=== PATIENT | male | born 1970 | race Caucasian/White ===

== ENCOUNTER 2022-02-16 20:00 | Inpatient (IN) | payer MEDICAID ==
[~2022-02-16] VITALS: Ht 167.6 cm; Wt 98.0 kg
[2022-02-16 20:47] LABS: BASOPHILS % 0.6 % (0.0-2.0); CHLORIDE 105 mEq/L (98-107); HEMATOCRIT. 42.3 % (42.0-52.0); HEMOGLOBIN. 14.5 g/dL (14.0-18.0); LYMPHOCYTES % 15.4 % (20.0-50.0); MEAN CORPUSCULAR HEMOGLOBIN 34.8 pg (28.0-32.0); MEAN CORPUSCULAR VOLUME 101.6 fL (80.0-94.0); MEAN PLATELET VOLUME 8.6 fl (7.4-10.4); MONOCYTES % 5.3 % (2.0-8.0); NEUTROPHILS % 78.7 % (40.0-76.0); PLATELET 140 x1000/uL (130-400); RED BLOOD CELL COUNT 4.16 mill/uL (4.7-6.1); RED CELL DISTRIBUTION WIDTH 14.4 % (11.6-14.6)
[2022-02-16 20:52] LABS: ETHANOL BLOOD < 10 mg/dL
[2022-02-16] MEDS ORDERED: ONDANSETRON HCL 4MG/2ML INJ IV STA (22:35)
[2022-02-16] MEDS ORDERED: MORPHINE SULFATE 4 MG/ML CPJ (NOT FOR IM USE) IV STA (22:35)
[2022-02-17] VITALS (7 sets, daily range): BP systolic 145–159; BP diastolic 75–96
[2022-02-17] MEDS ORDERED: ASPIRIN 325MG EC TABLET PO ONE (02:15)
[2022-02-17] MEDS ORDERED: CLOPIDOGREL 75MG TABLET PO ONE (02:15)
[2022-02-17] MEDS ORDERED: CLOPIDOGREL 75MG TABLET PO SCH (03:45)
[2022-02-17] MEDS ORDERED: ASPIRIN 325MG EC TABLET PO SCH (03:45)
[2022-02-17] MEDS ORDERED: ASPI-986 PO (10:39)
[2022-02-17] MEDS ORDERED: ACETAMINOPHEN WITH CODEINE 300/30MG TABLET PO PRN (13:30)
[2022-02-17] MEDS ORDERED: IPRATROPIUM/ALBUTEROL 0.5-3(2.5)MG/3ML NEB HHN PRN (13:45)
[2022-02-17] MEDS ORDERED: ONDANSETRON HCL 4MG/2ML INJ IV PRN (13:45)
[2022-02-17] MEDS ORDERED: CLONIDINE 0.1MG TABLET PO PRN (13:45)
[2022-02-17] MEDS ORDERED: NALOXONE HCL 0.4MG/ML VIAL IV PRN (14:00)
[2022-02-17] MEDS: HYDROCODONE/APAP 7.5/325MG 1 TAB TABLET PO PRN (16:39)
[2022-02-17] MEDS: SODIUM CHLORIDE 0.9% 1,000 ML IV SCH (18:17)
[2022-02-17] MEDS: ACETAMINOPHEN 325MG TABLET PO PRN (20:08)
[2022-02-18] VITALS (12 sets, daily range): BP systolic 134–159; BP diastolic 80–101
[2022-02-18] MEDS: HYDROCODONE/APAP 7.5/325MG 1 TAB TABLET PO PRN (06:36)
[2022-02-18] MEDS: THIAMINE HCL 100MG TABLET PO SCH (09:00)
[2022-02-18] MEDS: SODIUM CHLORIDE 0.9% 1,000 ML IV SCH (09:55)
[2022-02-18] MEDS: ACETAMINOPHEN 325MG TABLET PO PRN ×2 (10:06→20:09)
[2022-02-18] MEDS: CLOPIDOGREL 75MG TABLET PO SCH (10:06)
[2022-02-18] MEDS: ASPIRIN 81MG TABLET PO SCH (10:06)
[2022-02-18] MEDS: FOLIC ACID 1MG TABLET PO SCH (13:00)
[2022-02-18] MEDS: CHLORDIAZEPOXIDE 25MG CAPSULE PO SCH (16:29)
[2022-02-19] VITALS (12 sets, daily range): BP systolic 127–152; BP diastolic 70–99
[2022-02-19] MEDS: ACETAMINOPHEN 325MG TABLET PO PRN ×3 (05:29→16:55)
[2022-02-19 05:40] LABS: BASOPHILS % 0.9 % (0.0-2.0); EOSINOPHILS % 1.6 % (0.0-5.0); HEMATOCRIT. 45.4 % (42.0-52.0); HEMOGLOBIN. 15.5 g/dL (14.0-18.0); LYMPHOCYTES % 28.7 % (20.0-50.0); MEAN CORPUSCULAR HEMOGLOBIN 34.8 pg (28.0-32.0); MONOCYTES % 11.5 % (2.0-8.0); NEUTROPHILS % 57.3 % (40.0-76.0); PLATELET 161 x1000/uL (130-400); RED BLOOD CELL COUNT 4.45 mill/uL (4.7-6.1); RED CELL DISTRIBUTION WIDTH 14.5 % (11.6-14.6)
[2022-02-19 05:45] LABS: CHLORIDE 108 mEq/L (98-107)
[2022-02-19 05:55] LABS: LDL CHOLESTEROL 127 mg/dL (5-100)
[2022-02-19 05:58] LABS: HDL CHOLESTEROL 39 mg/dL (40-59)
[2022-02-19] MEDS: CHLORDIAZEPOXIDE 25MG CAPSULE PO SCH ×2 (10:14→10:15)
[2022-02-19] MEDS: ASPIRIN 81MG TABLET PO SCH (10:14)
[2022-02-19] MEDS: THIAMINE HCL 100MG TABLET PO SCH (10:16)
[2022-02-19] MEDS: CLOPIDOGREL 75MG TABLET PO SCH (10:16)
[2022-02-19] MEDS: FOLIC ACID 1MG TABLET PO SCH (10:16)
[2022-02-19] MEDS: ATORVASTATIN CALCIUM 40MG TABLET PO SCH (22:02)
[2022-02-19] MEDS: HYDROCODONE/APAP 7.5/325MG 1 TAB TABLET PO PRN (22:02)
[2022-02-20] VITALS (12 sets, daily range): BP systolic 118–171; BP diastolic 72–92
[2022-02-20] MEDS: THIAMINE HCL 100MG TABLET PO SCH (08:10)
[2022-02-20] MEDS: CHLORDIAZEPOXIDE 25MG CAPSULE PO SCH ×2 (08:10→17:59)
[2022-02-20] MEDS: CLOPIDOGREL 75MG TABLET PO SCH (08:10)
[2022-02-20] MEDS: ASPIRIN 81MG TABLET PO SCH (08:10)
[2022-02-20] MEDS: FOLIC ACID 1MG TABLET PO SCH (08:10)
[2022-02-20] MEDS: ACETAMINOPHEN 325MG TABLET PO PRN ×2 (13:23→15:24)
[2022-02-20] MEDS: ATORVASTATIN CALCIUM 40MG TABLET PO SCH (20:12)
[2022-02-20] MEDS: HYDROCODONE/APAP 7.5/325MG 1 TAB TABLET PO PRN (20:12)
[2022-02-21] VITALS (12 sets, daily range): BP systolic 116–189; BP diastolic 72–96
[2022-02-21 05:59] LABS: BASOPHILS % 0.7 % (0.0-2.0); EOSINOPHILS % 6.9 % (0.0-5.0); HEMATOCRIT. 45.5 % (42.0-52.0); HEMOGLOBIN. 15.6 g/dL (14.0-18.0); LYMPHOCYTES % 27.5 % (20.0-50.0); MEAN CORPUSCULAR VOLUME 102.3 fL (80.0-94.0); MEAN PLATELET VOLUME 8.9 fl (7.4-10.4); MONOCYTES % 11.6 % (2.0-8.0); NEUTROPHILS % 53.3 % (40.0-76.0); PLATELET 171 x1000/uL (130-400); RED BLOOD CELL COUNT 4.45 mill/uL (4.7-6.1); RED CELL DISTRIBUTION WIDTH 14.4 % (11.6-14.6)
[2022-02-21 06:09] LABS: CHLORIDE 113 mEq/L (98-107)
[2022-02-21] MEDS: ASPIRIN 81MG TABLET PO SCH (08:37)
[2022-02-21] MEDS: CLOPIDOGREL 75MG TABLET PO SCH (08:37)
[2022-02-21] MEDS: FOLIC ACID 1MG TABLET PO SCH (08:37)
[2022-02-21] MEDS: CHLORDIAZEPOXIDE 25MG CAPSULE PO SCH ×2 (08:37→15:56)
[2022-02-21] MEDS: ACETAMINOPHEN 325MG TABLET PO PRN (08:38)
[2022-02-21] MEDS: THIAMINE HCL 100MG TABLET PO SCH (08:39)
[2022-02-21] MEDS: PANTOPRAZOLE 40MG DR TABLET PO SCH (15:43)
[2022-02-21] MEDS: BACLOFEN 10MG TABLET NG SCH (15:44)
[2022-02-21] MEDS: HYDROCODONE/APAP 7.5/325MG 1 TAB TABLET PO PRN (18:35)
[2022-02-21] MEDS: ATORVASTATIN CALCIUM 40MG TABLET PO SCH (20:34)
[2022-02-22] VITALS (12 sets, daily range): BP systolic 120–138; BP diastolic 73–86
[2022-02-22 07:17] LABS: BASOPHILS % 0.7 % (0.0-2.0); EOSINOPHILS % 9.2 % (0.0-5.0); HEMATOCRIT. 43.8 % (42.0-52.0); HEMOGLOBIN. 15.4 g/dL (14.0-18.0); LYMPHOCYTES % 28.5 % (20.0-50.0); MEAN CORPUSCULAR HEMOGLOBIN 35.4 pg (28.0-32.0); MEAN CORPUSCULAR VOLUME 100.8 fL (80.0-94.0); MEAN PLATELET VOLUME 8.9 fl (7.4-10.4); MONOCYTES % 12.1 % (2.0-8.0); NEUTROPHILS % 49.5 % (40.0-76.0); PLATELET 162 x1000/uL (130-400); RED BLOOD CELL COUNT 4.34 mill/uL (4.7-6.1); RED CELL DISTRIBUTION WIDTH 14.2 % (11.6-14.6)
[2022-02-22 07:45] LABS: CHLORIDE 110 mEq/L (98-107)
[2022-02-22] MEDS: FOLIC ACID 1MG TABLET PO SCH (08:20)
[2022-02-22] MEDS: CHLORDIAZEPOXIDE 25MG CAPSULE PO SCH (08:20)
[2022-02-22] MEDS: CLOPIDOGREL 75MG TABLET PO SCH (08:20)
[2022-02-22] MEDS: PANTOPRAZOLE 40MG DR TABLET PO SCH (08:20)
[2022-02-22] MEDS: THIAMINE HCL 100MG TABLET PO SCH (08:21)
[2022-02-22] MEDS: ASPIRIN 81MG TABLET PO SCH (08:21)
[2022-02-22] MEDS: BACLOFEN 10MG TABLET NG SCH ×2 (08:21→17:00)
[2022-02-22] MEDS: ATORVASTATIN CALCIUM 40MG TABLET PO SCH (20:51)
[2022-02-22] MEDS: ACETAMINOPHEN 325MG TABLET PO PRN (23:52)
[2022-02-23] VITALS (11 sets, daily range): BP systolic 111–171; BP diastolic 67–107
[2022-02-23] MEDS: PANTOPRAZOLE 40MG DR TABLET PO SCH (07:30)
[2022-02-23] MEDS ORDERED: NALOXONE HCL 0.4MG/ML VIAL IV PRN (08:00)
[2022-02-23] MEDS: BACLOFEN 10MG TABLET NG SCH ×2 (08:37→17:31)
[2022-02-23] MEDS: CLOPIDOGREL 75MG TABLET PO SCH (08:38)
[2022-02-23] MEDS: ASPIRIN 81MG TABLET PO SCH (08:38)
[2022-02-23] MEDS: CHLORDIAZEPOXIDE 25MG CAPSULE PO SCH (08:38)
[2022-02-23] MEDS: FOLIC ACID 1MG TABLET PO SCH (08:38)
[2022-02-23] MEDS: THIAMINE HCL 100MG TABLET PO SCH (08:39)
[2022-02-23] MEDS: SODIUM CHLORIDE 0.9% 1,000 ML IV SCH ×2 (09:25→17:45)
[2022-02-23] MEDS ORDERED: BARIUM SULFATE 176 GM SUSP.RECON ONE (12:52)
[2022-02-23] MEDS ORDERED: EZ-HD SUSPENSION(BARIUM SULFATE 340GM) PO ONE (12:53)
[2022-02-23] MEDS: CHLORPROMAZINE HCL 10 MG TABLET PO SCH ×2 (17:31→23:44)
[2022-02-23] MEDS: MORPHINE SULFATE 2 MG/ML CPJ (NOT FOR IM USE) IV PRN (17:59)
[2022-02-23] MEDS: ACETAMINOPHEN 325MG TABLET PO PRN (20:44)
[2022-02-23] MEDS: ATORVASTATIN CALCIUM 40MG TABLET PO SCH (20:44)
[2022-02-24] VITALS (12 sets, daily range): BP systolic 98–142; BP diastolic 62–93
[2022-02-24] MEDS: SODIUM CHLORIDE 0.9% 1,000 ML IV SCH (04:08)
[2022-02-24 05:55] LABS: BASOPHILS % 0.7 % (0.0-2.0); EOSINOPHILS % 9.4 % (0.0-5.0); HEMATOCRIT. 41.4 % (42.0-52.0); HEMOGLOBIN. 14.4 g/dL (14.0-18.0); LYMPHOCYTES % 33.4 % (20.0-50.0); MEAN CORPUSCULAR HEMOGLOBIN 35.1 pg (28.0-32.0); MEAN CORPUSCULAR VOLUME 101.3 fL (80.0-94.0); MEAN PLATELET VOLUME 9.1 fl (7.4-10.4); MONOCYTES % 9.4 % (2.0-8.0); NEUTROPHILS % 47.1 % (40.0-76.0); PLATELET 147 x1000/uL (130-400); RED BLOOD CELL COUNT 4.09 mill/uL (4.7-6.1); RED CELL DISTRIBUTION WIDTH 13.8 % (11.6-14.6)
[2022-02-24 05:57] LABS: CHLORIDE 113 mEq/L (98-107)
[2022-02-24] MEDS: BACLOFEN 10MG TABLET NG SCH ×2 (08:31→17:05)
[2022-02-24] MEDS: POLYETHYLENE GLYCOL 3350 (17GM) 1 DOSE PACK PO SCH (08:31)
[2022-02-24] MEDS: PANTOPRAZOLE 40MG DR TABLET PO SCH (08:31)
[2022-02-24] MEDS: THIAMINE HCL 100MG TABLET PO SCH (08:32)
[2022-02-24] MEDS: FOLIC ACID 1MG TABLET PO SCH (08:32)
[2022-02-24] MEDS: CHLORPROMAZINE HCL 10 MG TABLET PO SCH ×4 (08:32→23:18)
[2022-02-24] MEDS: CHLORDIAZEPOXIDE 25MG CAPSULE PO SCH (08:32)
[2022-02-24] MEDS: ASPIRIN 81MG TABLET PO SCH (08:32)
[2022-02-24] MEDS: CLOPIDOGREL 75MG TABLET PO SCH (08:32)
[2022-02-24 19:59] LABS: TOTAL IRON BINDING CAPACITY 307 ug/dL (250-450)
[2022-02-24 20:16] LABS: FERRITIN 240 ng/mL (22-322)
[2022-02-24 20:25] LABS: VITAMIN B12 SERUM 992 pg/mL (211-911)
[2022-02-24 20:34] LABS: FOLIC ACID (FOLATE) SERUM > 20.00 ng/mL (>5.38)
[2022-02-24] MEDS: ATORVASTATIN CALCIUM 40MG TABLET PO SCH (20:54)
[2022-02-25] VITALS (12 sets, daily range): BP systolic 101–152; BP diastolic 61–90
[2022-02-25] MEDS: CHLORPROMAZINE HCL 10 MG TABLET PO SCH (06:24)
[2022-02-25 06:28] LABS: HEMATOCRIT 40.6 % (42.0-52.0); MEAN CORPUSCULAR HEMOGLOBIN 34.9 pg (28.0-32.0); MEAN CORPUSCULAR VOLUME 100.9 fL (80.0-94.0); PLATELET 145 x1000/uL (130-400); RED BLOOD CELL COUNT 4.03 mill/uL (4.7-6.1)
[2022-02-25 06:35] LABS: CHLORIDE 112 mEq/L (98-107)
[2022-02-25] MEDS: PANTOPRAZOLE 40MG DR TABLET PO SCH (06:36)
[2022-02-25] MEDS: CLOPIDOGREL 75MG TABLET PO SCH (09:24)
[2022-02-25] MEDS: FOLIC ACID 1MG TABLET PO SCH (09:24)
[2022-02-25] MEDS: BACLOFEN 10MG TABLET NG SCH ×2 (09:24→17:22)
[2022-02-25] MEDS: THIAMINE HCL 100MG TABLET PO SCH (09:24)
[2022-02-25] MEDS: ASPIRIN 81MG TABLET PO SCH (09:24)
[2022-02-25] MEDS: POLYETHYLENE GLYCOL 3350 (17GM) 1 DOSE PACK PO SCH (09:36)
[2022-02-25] MEDS: CHLORPROMAZINE HCL 25 MG TABLET PO SCH ×2 (13:00→17:22)
[2022-02-25] MEDS: ATORVASTATIN CALCIUM 40MG TABLET PO SCH (21:58)
[2022-02-26] VITALS (11 sets, daily range): BP systolic 101–151; BP diastolic 61–86
[2022-02-26] MEDS: MORPHINE SULFATE 2 MG/ML CPJ (NOT FOR IM USE) IV PRN ×3 (02:05→13:34)
[2022-02-26 05:50] LABS: INR 1.2; PROTHROMBIN TIME 12.5 sec (9.6-11.0)
[2022-02-26 06:47] LABS: HEMATOCRIT. 42.2 % (42.0-52.0); HEMOGLOBIN. 14.7 g/dL (14.0-18.0); MEAN PLATELET VOLUME 9.5 fl (7.4-10.4); PLATELET 155 x1000/uL (130-400); RED BLOOD CELL COUNT 4.22 mill/uL (4.7-6.1); RED CELL DISTRIBUTION WIDTH 13.8 % (11.6-14.6)
[2022-02-26] MEDS: PANTOPRAZOLE 40MG DR TABLET PO SCH (06:48)
[2022-02-26 08:10] LABS: CHLORIDE 110 mEq/L (98-107)
[2022-02-26] MEDS: CHLORPROMAZINE HCL 25 MG TABLET PO SCH ×3 (09:00→17:51)
[2022-02-26] MEDS: BACLOFEN 10MG TABLET NG SCH ×2 (09:00→17:52)
[2022-02-26] MEDS: THIAMINE HCL 100MG TABLET PO SCH (13:32)
[2022-02-26] MEDS: FOLIC ACID 1MG TABLET PO SCH (13:33)
[2022-02-26] MEDS: POLYETHYLENE GLYCOL 3350 (17GM) 1 DOSE PACK PO SCH (13:33)
[2022-02-26 13:43] LABS: PLATELET ESTIMATE NORMAL
[2022-02-26] MEDS ORDERED: BISACODYL 10MG SUPP PR NR (13:45)
[2022-02-26] MEDS ORDERED: LACTULOSE 20G/30ML UDC NG NR (15:00)
[2022-02-26] MEDS: DOCUSATE SODIUM SUGAR FREE 100MG/10ML UDC NG SCH (21:00)
[2022-02-26] MEDS: ATORVASTATIN CALCIUM 40MG TABLET PO SCH (21:41)
[2022-02-27] VITALS (11 sets, daily range): BP systolic 112–129; BP diastolic 68–80
[2022-02-27 06:30] LABS: HEMATOCRIT. 42.7 % (42.0-52.0); HEMOGLOBIN. 14.8 g/dL (14.0-18.0); MEAN CORPUSCULAR HEMOGLOBIN 34.7 pg (28.0-32.0); MEAN CORPUSCULAR VOLUME 100.1 fL (80.0-94.0); MEAN PLATELET VOLUME 9.7 fl (7.4-10.4); PLATELET 161 x1000/uL (130-400); RED BLOOD CELL COUNT 4.26 mill/uL (4.7-6.1); RED CELL DISTRIBUTION WIDTH 13.4 % (11.6-14.6)
[2022-02-27] MEDS: PANTOPRAZOLE 40MG DR TABLET PO SCH (06:32)
[2022-02-27 06:34] LABS: INR 1.1; PROTHROMBIN TIME 12.1 sec (9.6-11.0)
[2022-02-27 07:10] LABS: CHLORIDE 110 mEq/L (98-107)
[2022-02-27] MEDS: BACLOFEN 10MG TABLET NG SCH ×2 (08:20→17:48)
[2022-02-27] MEDS: FOLIC ACID 1MG TABLET PO SCH (08:20)
[2022-02-27] MEDS: THIAMINE HCL 100MG TABLET PO SCH (08:20)
[2022-02-27] MEDS: POLYETHYLENE GLYCOL 3350 (17GM) 1 DOSE PACK PO SCH (08:20)
[2022-02-27] MEDS: CHLORPROMAZINE HCL 25 MG TABLET PO SCH ×3 (08:20→17:48)
[2022-02-27] MEDS: DOCUSATE SODIUM SUGAR FREE 100MG/10ML UDC NG SCH ×2 (09:00→21:07)
[2022-02-27 10:01] LABS: PLATELET ESTIMATE NORMAL
[2022-02-27] MEDS: MORPHINE SULFATE 2 MG/ML CPJ (NOT FOR IM USE) IV PRN (16:16)
[2022-02-27] MEDS: ATORVASTATIN CALCIUM 40MG TABLET PO SCH (21:07)
[2022-02-28] VITALS (12 sets, daily range): BP systolic 102–147; BP diastolic 50–84
[2022-02-28] MEDS: MORPHINE SULFATE 2 MG/ML CPJ (NOT FOR IM USE) IV PRN (03:35)
[2022-02-28 06:15] LABS: INR 1.2; PROTHROMBIN TIME 12.4 sec (9.6-11.0)
[2022-02-28 06:22] LABS: CHLORIDE 109 mEq/L (98-107)
[2022-02-28 06:32] LABS: BASOPHILS % 0.9 % (0.0-2.0); EOSINOPHILS % 6.5 % (0.0-5.0); HEMATOCRIT. 41.4 % (42.0-52.0); HEMOGLOBIN. 14.6 g/dL (14.0-18.0); LYMPHOCYTES % 30.3 % (20.0-50.0); MEAN CORPUSCULAR HEMOGLOBIN 35.2 pg (28.0-32.0); MEAN CORPUSCULAR VOLUME 100.2 fL (80.0-94.0); MEAN PLATELET VOLUME 9.5 fl (7.4-10.4); MONOCYTES % 10.4 % (2.0-8.0); NEUTROPHILS % 51.9 % (40.0-76.0); PLATELET 160 x1000/uL (130-400); RED BLOOD CELL COUNT 4.14 mill/uL (4.7-6.1); RED CELL DISTRIBUTION WIDTH 13.5 % (11.6-14.6)
[2022-02-28] MEDS: PANTOPRAZOLE 40MG DR TABLET PO SCH (06:33)
[2022-02-28] MEDS: POLYETHYLENE GLYCOL 3350 (17GM) 1 DOSE PACK PO SCH (09:29)
[2022-02-28] MEDS: FOLIC ACID 1MG TABLET PO SCH (09:29)
[2022-02-28] MEDS: THIAMINE HCL 100MG TABLET PO SCH (09:29)
[2022-02-28] MEDS: DOCUSATE SODIUM SUGAR FREE 100MG/10ML UDC NG SCH ×2 (09:29→21:38)
[2022-02-28] MEDS: CHLORPROMAZINE HCL 25 MG TABLET PO SCH ×3 (09:30→17:24)
[2022-02-28] MEDS: BACLOFEN 10MG TABLET NG SCH ×2 (09:30→17:24)
[2022-02-28] MEDS: ACETAMINOPHEN 325MG TABLET PO PRN (13:02)
[2022-02-28] MEDS: DOCUSATE SODIUM 100MG CAPSULE PO PRN (21:34)
[2022-02-28] MEDS: ATORVASTATIN CALCIUM 40MG TABLET PO SCH (21:34)
[2022-03-01] VITALS (12 sets, daily range): BP systolic 103–150; BP diastolic 57–91
[2022-03-01 06:20] LABS: HEMATOCRIT. 42.2 % (42.0-52.0); HEMOGLOBIN. 14.8 g/dL (14.0-18.0); MEAN CORPUSCULAR HEMOGLOBIN 34.6 pg (28.0-32.0); MEAN PLATELET VOLUME 9.4 fl (7.4-10.4); PLATELET 171 x1000/uL (130-400); RED BLOOD CELL COUNT 4.27 mill/uL (4.7-6.1); RED CELL DISTRIBUTION WIDTH 13.8 % (11.6-14.6)
[2022-03-01 06:53] LABS: CHLORIDE 110 mEq/L (98-107)
[2022-03-01] MEDS: BACLOFEN 10MG TABLET NG SCH ×2 (09:00→17:23)
[2022-03-01] MEDS: CHLORPROMAZINE HCL 25 MG TABLET PO SCH ×3 (09:00→17:22)
[2022-03-01 12:22] LABS: PLATELET ESTIMATE NORMAL
[2022-03-01] MEDS: DOCUSATE SODIUM SUGAR FREE 100MG/10ML UDC NG SCH ×2 (13:32→21:04)
[2022-03-01] MEDS: POLYETHYLENE GLYCOL 3350 (17GM) 1 DOSE PACK PO SCH (13:33)
[2022-03-01] MEDS: ACETAMINOPHEN 325MG TABLET PO PRN ×2 (13:33→23:32)
[2022-03-01] MEDS: PANTOPRAZOLE 40MG DR TABLET PO SCH (13:33)
[2022-03-01] MEDS: FOLIC ACID 1MG TABLET PO SCH (13:33)
[2022-03-01] MEDS: THIAMINE HCL 100MG TABLET PO SCH (13:33)
[2022-03-01] MEDS: ATORVASTATIN CALCIUM 40MG TABLET PO SCH (21:03)
[2022-03-02] VITALS (12 sets, daily range): BP systolic 93–135; BP diastolic 47–93
[2022-03-02] MEDS: DOCUSATE SODIUM SUGAR FREE 100MG/10ML UDC NG SCH ×2 (09:00→20:45)
[2022-03-02] MEDS: BACLOFEN 10MG TABLET NG SCH ×2 (09:00→15:36)
[2022-03-02] MEDS: CHLORPROMAZINE HCL 25 MG TABLET PO SCH ×3 (09:00→15:37)
[2022-03-02] MEDS ORDERED: EZ-HD SUSPENSION(BARIUM SULFATE 340GM) PO ONE (10:40)
[2022-03-02] MEDS ORDERED: BARIUM SULFATE 176 GM SUSP.RECON ONE (11:45)
[2022-03-02] MEDS: POLYETHYLENE GLYCOL 3350 (17GM) 1 DOSE PACK PO SCH (15:36)
[2022-03-02] MEDS: THIAMINE HCL 100MG TABLET PO SCH (15:37)
[2022-03-02] MEDS: FOLIC ACID 1MG TABLET PO SCH (15:37)
[2022-03-02] MEDS: PANTOPRAZOLE 40MG DR TABLET PO SCH (15:37)
[2022-03-02] MEDS: ATORVASTATIN CALCIUM 40MG TABLET PO SCH (20:45)
[2022-03-02] MEDS: ENOXAPARIN 30MG/0.3ML SYR SUBCUT SCH (20:46)
[2022-03-03] VITALS (14 sets, daily range): BP systolic 105–126; BP diastolic 53–84
[2022-03-03] MEDS: ACETAMINOPHEN 325MG TABLET PO PRN ×2 (07:05→20:47)
[2022-03-03] MEDS: FOLIC ACID 1MG TABLET PO SCH (09:00)
[2022-03-03] MEDS: DOCUSATE SODIUM SUGAR FREE 100MG/10ML UDC NG SCH ×2 (09:00→20:47)
[2022-03-03] MEDS: THIAMINE HCL 100MG TABLET PO SCH (09:28)
[2022-03-03] MEDS: PANTOPRAZOLE 40MG DR TABLET PO SCH (09:28)
[2022-03-03] MEDS: CHLORPROMAZINE HCL 25 MG TABLET PO SCH (09:28)
[2022-03-03] MEDS: POLYETHYLENE GLYCOL 3350 (17GM) 1 DOSE PACK PO SCH (09:28)
[2022-03-03] MEDS: ENOXAPARIN 30MG/0.3ML SYR SUBCUT SCH ×2 (09:31→21:59)
[2022-03-03] MEDS: BACLOFEN 10MG TABLET NG SCH ×2 (09:33→18:54)
[2022-03-03] MEDS: CHLORPROMAZINE HCL 10 MG TABLET PO SCH ×2 (14:03→18:54)
[2022-03-03] MEDS: ATORVASTATIN CALCIUM 40MG TABLET PO SCH (20:47)
[2022-03-04] VITALS (12 sets, daily range): BP systolic 106–137; BP diastolic 60–83
[2022-03-04] MEDS: ACETAMINOPHEN 325MG TABLET PO PRN ×3 (03:58→21:08)
[2022-03-04] MEDS: POLYETHYLENE GLYCOL 3350 (17GM) 1 DOSE PACK PO SCH (07:29)
[2022-03-04] MEDS: DOCUSATE SODIUM SUGAR FREE 100MG/10ML UDC NG SCH ×2 (07:29→21:07)
[2022-03-04] MEDS: FOLIC ACID 1MG TABLET PO SCH (08:48)
[2022-03-04] MEDS: ENOXAPARIN 30MG/0.3ML SYR SUBCUT SCH (08:48)
[2022-03-04] MEDS: PANTOPRAZOLE 40MG DR TABLET PO SCH (08:48)
[2022-03-04] MEDS: THIAMINE HCL 100MG TABLET PO SCH (08:48)
[2022-03-04] MEDS: BACLOFEN 10MG TABLET NG SCH ×2 (08:48→17:00)
[2022-03-04] MEDS: CHLORPROMAZINE HCL 10 MG TABLET PO SCH (08:48)
[2022-03-04] MEDS: ATORVASTATIN CALCIUM 40MG TABLET PO SCH (21:08)
[2022-03-05] VITALS (11 sets, daily range): BP systolic 105–188; BP diastolic 62–82
[2022-03-05 05:44] LABS: INR 1.2
[2022-03-05 06:14] LABS: HEMATOCRIT. 41.7 % (42.0-52.0); HEMOGLOBIN. 14.8 g/dL (14.0-18.0); MEAN CORPUSCULAR HEMOGLOBIN 34.7 pg (28.0-32.0); MEAN CORPUSCULAR VOLUME 97.9 fL (80.0-94.0); MEAN PLATELET VOLUME 9.7 fl (7.4-10.4); PLATELET 194 x1000/uL (130-400); RED BLOOD CELL COUNT 4.26 mill/uL (4.7-6.1); RED CELL DISTRIBUTION WIDTH 13.4 % (11.6-14.6)
[2022-03-05] MEDS: PANTOPRAZOLE 40MG DR TABLET PO SCH (08:38)
[2022-03-05] MEDS: THIAMINE HCL 100MG TABLET PO SCH (08:39)
[2022-03-05] MEDS: FOLIC ACID 1MG TABLET PO SCH (08:39)
[2022-03-05] MEDS: POLYETHYLENE GLYCOL 3350 (17GM) 1 DOSE PACK PO SCH (08:39)
[2022-03-05] MEDS: BACLOFEN 10MG TABLET NG SCH ×2 (08:39→17:24)
[2022-03-05] MEDS: DOCUSATE SODIUM SUGAR FREE 100MG/10ML UDC NG SCH ×2 (08:39→20:14)
[2022-03-05 08:45] LABS: CHLORIDE 110 mEq/L (98-107)
[2022-03-05] MEDS ORDERED: CEFAZOLIN 1000MG PREMIX 50 ML IV NR (13:00)
[2022-03-05] MEDS ORDERED: PROPOFOL 200MG/20ML VIAL IV ONE (13:43)
[2022-03-05] MEDS ORDERED: MIDAZOLAM HCL 2 MG/2 ML VIAL ONE ×2 (13:43→13:44)
[2022-03-05] MEDS ORDERED: LIDOCAINE HCL 1% 20ML VIAL (Pyxis) INJ ONE (13:44)
[2022-03-05] MEDS: METOCLOPRAMIDE HCL 10MG/2ML VIAL IV SCH ×2 (17:24→23:28)
[2022-03-05 18:51] LABS: PLATELET ESTIMATE NORMAL
[2022-03-05] MEDS: ATORVASTATIN CALCIUM 40MG TABLET PO SCH (20:13)
[2022-03-06] VITALS (9 sets, daily range): BP systolic 100–135; BP diastolic 33–84
[2022-03-06] MEDS: ACETAMINOPHEN 325MG TABLET PO PRN ×2 (03:53→20:08)
[2022-03-06] MEDS: PANTOPRAZOLE 40MG DR TABLET PO SCH (05:24)
[2022-03-06] MEDS: METOCLOPRAMIDE HCL 10MG/2ML VIAL IV SCH ×3 (05:24→17:17)
[2022-03-06 06:25] LABS: HEMATOCRIT 42.4 % (42.0-52.0); HEMOGLOBIN 14.8 g/dL (14.0-18.0); MEAN CORPUSCULAR HEMOGLOBIN 34.9 pg (28.0-32.0); MEAN CORPUSCULAR VOLUME 99.8 fL (80.0-94.0); PLATELET 190 x1000/uL (130-400); RED BLOOD CELL COUNT 4.25 mill/uL (4.7-6.1); RED CELL DISTRIBUTION WIDTH 13.2 % (11.6-14.6)
[2022-03-06 07:24] LABS: CHLORIDE 111 mEq/L (98-107)
[2022-03-06] MEDS: BACLOFEN 10MG TABLET NG SCH ×2 (08:59→17:08)
[2022-03-06] MEDS: FOLIC ACID 1MG TABLET PO SCH (08:59)
[2022-03-06] MEDS: DOCUSATE SODIUM SUGAR FREE 100MG/10ML UDC NG SCH ×2 (08:59→21:00)
[2022-03-06] MEDS: POLYETHYLENE GLYCOL 3350 (17GM) 1 DOSE PACK PO SCH (08:59)
[2022-03-06] MEDS: THIAMINE HCL 100MG TABLET PO SCH (08:59)
[2022-03-06] MEDS: ENOXAPARIN 30MG/0.3ML SYR SUBCUT SCH ×2 (09:00→20:09)
[2022-03-06] MEDS: ATORVASTATIN CALCIUM 40MG TABLET PO SCH (20:08)
[2022-03-06] MEDS: DOCUSATE SODIUM 100MG CAPSULE PO PRN (20:09)
[2022-03-07] VITALS: BP 108/62
[2022-03-07] MEDS: METOCLOPRAMIDE HCL 10MG/2ML VIAL IV SCH ×3 (03:09→12:00)
[2022-03-07 04:00] VITALS: BP 105/62
[2022-03-07 06:48] LABS: HEMATOCRIT. 42.3 % (42.0-52.0); HEMOGLOBIN. 14.8 g/dL (14.0-18.0); MEAN CORPUSCULAR HEMOGLOBIN 34.5 pg (28.0-32.0); MEAN CORPUSCULAR VOLUME 99.1 fL (80.0-94.0); MEAN PLATELET VOLUME 9.2 fl (7.4-10.4); PLATELET 181 x1000/uL (130-400); RED BLOOD CELL COUNT 4.27 mill/uL (4.7-6.1); RED CELL DISTRIBUTION WIDTH 13.4 % (11.6-14.6)
[2022-03-07 06:53] LABS: CHLORIDE 111 mEq/L (98-107)
[2022-03-07 08:00] VITALS: BP 118/78
[2022-03-07] MEDS: THIAMINE HCL 100MG TABLET PO SCH (09:35)
[2022-03-07] MEDS: ENOXAPARIN 30MG/0.3ML SYR SUBCUT SCH ×2 (09:36→20:36)
[2022-03-07] MEDS: DOCUSATE SODIUM SUGAR FREE 100MG/10ML UDC NG SCH (09:36)
[2022-03-07] MEDS: PANTOPRAZOLE 40MG DR TABLET PO SCH (09:36)
[2022-03-07] MEDS: POLYETHYLENE GLYCOL 3350 (17GM) 1 DOSE PACK PO SCH (09:36)
[2022-03-07] MEDS: FOLIC ACID 1MG TABLET PO SCH (09:36)
[2022-03-07] MEDS: BACLOFEN 10MG TABLET NG SCH (09:44)
[2022-03-07 12:00] VITALS: BP 114/72
[2022-03-07 13:32] LABS: PLATELET ESTIMATE NORMAL
[2022-03-07] MEDS ORDERED: METOCLOPRAMIDE HCL 10MG/2ML VIAL IV NR (14:00)
[2022-03-07] MEDS: ACETAMINOPHEN 325MG TABLET PO PRN ×2 (14:29→20:35)
[2022-03-07 16:00] VITALS: BP 104/68
[2022-03-07] MEDS: DOCUSATE SODIUM 100MG CAPSULE PO PRN (20:34)
[2022-03-07] MEDS: ATORVASTATIN CALCIUM 40MG TABLET PO SCH (20:36)
[2022-03-07 21:05] VITALS: BP 105/66
[2022-03-08] VITALS: BP 91/59
[2022-03-08] MEDS: ACETAMINOPHEN 325MG TABLET PO PRN ×3 (02:21→22:59)
[2022-03-08 04:00] VITALS: BP 96/57
[2022-03-08 08:00] VITALS: BP 104/71
[2022-03-08] MEDS: FOLIC ACID 1MG TABLET PO SCH (08:43)
[2022-03-08] MEDS: ASPIRIN 81MG TABLET PO SCH (08:46)
[2022-03-08] MEDS: CLOPIDOGREL 75MG TABLET PO SCH (08:46)
[2022-03-08] MEDS: THIAMINE HCL 100MG TABLET PO SCH (08:47)
[2022-03-08] MEDS: PANTOPRAZOLE 40MG DR TABLET PO SCH (08:47)
[2022-03-08] MEDS: ENOXAPARIN 30MG/0.3ML SYR SUBCUT SCH ×2 (08:48→20:25)
[2022-03-08] MEDS: POLYETHYLENE GLYCOL 3350 (17GM) 1 DOSE PACK PO SCH (08:53)
[2022-03-08] MEDS: DOCUSATE SODIUM SUGAR FREE 100MG/10ML UDC NG SCH ×2 (08:53→20:29)
[2022-03-08] MEDS: ACETAMINOPHEN 500MG TABLET PO SCH ×3 (10:30→16:57)
[2022-03-08 12:00] VITALS: BP 120/70
[2022-03-08 16:00] VITALS: BP 140/69
[2022-03-08 20:00] VITALS: BP 114/68
[2022-03-08] MEDS: DOCUSATE SODIUM 100MG CAPSULE PO PRN (20:24)
[2022-03-08] MEDS: ATORVASTATIN CALCIUM 40MG TABLET PO SCH (20:25)
[2022-03-09] VITALS: BP_SYST 105; BP_DIAS 64; BP_DIAS 69
[2022-03-09 04:00] VITALS: BP 105/69
[2022-03-09] MEDS: PANTOPRAZOLE 40MG DR TABLET PO SCH (06:23)
[2022-03-09 06:35] LABS: BASOPHILS % 0.7 % (0.0-2.0); EOSINOPHILS % 8.1 % (0.0-5.0); HEMATOCRIT. 42.8 % (42.0-52.0); HEMOGLOBIN. 14.7 g/dL (14.0-18.0); LYMPHOCYTES % 34.5 % (20.0-50.0); MEAN CORPUSCULAR HEMOGLOBIN 34.1 pg (28.0-32.0); MEAN CORPUSCULAR VOLUME 99.2 fL (80.0-94.0); MEAN PLATELET VOLUME 9.6 fl (7.4-10.4); MONOCYTES % 10.4 % (2.0-8.0); NEUTROPHILS % 46.3 % (40.0-76.0); PLATELET 172 x1000/uL (130-400); RED BLOOD CELL COUNT 4.31 mill/uL (4.7-6.1); RED CELL DISTRIBUTION WIDTH 13.4 % (11.6-14.6)
[2022-03-09 06:50] LABS: CHLORIDE 109 mEq/L (98-107)
[2022-03-09 08:00] VITALS: BP 110/64
[2022-03-09] MEDS: POLYETHYLENE GLYCOL 3350 (17GM) 1 DOSE PACK PO SCH (09:00)
[2022-03-09] MEDS: FOLIC ACID 1MG TABLET PO SCH (09:49)
[2022-03-09] MEDS: THIAMINE HCL 100MG TABLET PO SCH (09:50)
[2022-03-09] MEDS: DOCUSATE SODIUM 100MG CAPSULE PO PRN (09:50)
[2022-03-09] MEDS: ASPIRIN 81MG TABLET PO SCH (09:50)
[2022-03-09] MEDS: ACETAMINOPHEN 500MG TABLET PO SCH ×3 (09:51→17:24)
[2022-03-09] MEDS: DOCUSATE SODIUM SUGAR FREE 100MG/10ML UDC NG SCH ×2 (09:52→20:05)
[2022-03-09] MEDS: ENOXAPARIN 30MG/0.3ML SYR SUBCUT SCH ×2 (09:52→20:06)
[2022-03-09] MEDS: CLOPIDOGREL 75MG TABLET PO SCH (09:52)
[2022-03-09 12:00] VITALS: BP 103/66
[2022-03-09 16:00] VITALS: BP 98/56
[2022-03-09 20:00] VITALS: BP 104/68
[2022-03-09] MEDS: ATORVASTATIN CALCIUM 40MG TABLET PO SCH (20:06)
[2022-03-10] VITALS (8 sets, daily range): BP systolic 95–106; BP diastolic 60–67
[2022-03-10] MEDS: ACETAMINOPHEN 325MG TABLET PO PRN (03:29)
[2022-03-10] MEDS: PANTOPRAZOLE 40MG DR TABLET PO SCH (06:31)
[2022-03-10 08:30] LABS: BASOPHILS % 0.8 % (0.0-2.0); EOSINOPHILS % 6.7 % (0.0-5.0); HEMATOCRIT. 41.5 % (42.0-52.0); HEMOGLOBIN. 14.3 g/dL (14.0-18.0); LYMPHOCYTES % 34.5 % (20.0-50.0); MEAN CORPUSCULAR HEMOGLOBIN 34.2 pg (28.0-32.0); MEAN CORPUSCULAR VOLUME 98.9 fL (80.0-94.0); MEAN PLATELET VOLUME 9.3 fl (7.4-10.4); MONOCYTES % 10.4 % (2.0-8.0); NEUTROPHILS % 47.6 % (40.0-76.0); PLATELET 176 x1000/uL (130-400); RED CELL DISTRIBUTION WIDTH 13.5 % (11.6-14.6)
[2022-03-10 09:29] LABS: CHLORIDE 110 mEq/L (98-107)
[2022-03-10] MEDS: ASPIRIN 81MG TABLET PO SCH (09:29)
[2022-03-10] MEDS: DOCUSATE SODIUM SUGAR FREE 100MG/10ML UDC NG SCH ×2 (09:29→21:47)
[2022-03-10] MEDS: THIAMINE HCL 100MG TABLET PO SCH (09:29)
[2022-03-10] MEDS: ACETAMINOPHEN 500MG TABLET PO SCH ×3 (09:29→17:23)
[2022-03-10] MEDS: CLOPIDOGREL 75MG TABLET PO SCH (09:29)
[2022-03-10] MEDS: FOLIC ACID 1MG TABLET PO SCH (09:29)
[2022-03-10] MEDS: ENOXAPARIN 30MG/0.3ML SYR SUBCUT SCH ×2 (09:30→21:48)
[2022-03-10] MEDS: POLYETHYLENE GLYCOL 3350 (17GM) 1 DOSE PACK PO SCH (09:31)
[2022-03-10] MEDS: ATORVASTATIN CALCIUM 40MG TABLET PO SCH (21:47)
[2022-03-11] VITALS: BP 92/53
[2022-03-11 04:00] VITALS: BP 103/65
[2022-03-11] MEDS: PANTOPRAZOLE 40MG DR TABLET PO SCH (06:18)
[2022-03-11 06:25] LABS: BASOPHILS % 0.7 % (0.0-2.0); EOSINOPHILS % 9.2 % (0.0-5.0); HEMATOCRIT. 39.9 % (42.0-52.0); HEMOGLOBIN. 13.9 g/dL (14.0-18.0); LYMPHOCYTES % 42.4 % (20.0-50.0); MEAN CORPUSCULAR HEMOGLOBIN 34.3 pg (28.0-32.0); MEAN CORPUSCULAR VOLUME 98.5 fL (80.0-94.0); MEAN PLATELET VOLUME 9.4 fl (7.4-10.4); MONOCYTES % 10.4 % (2.0-8.0); NEUTROPHILS % 37.3 % (40.0-76.0); PLATELET 177 x1000/uL (130-400); RED BLOOD CELL COUNT 4.05 mill/uL (4.7-6.1); RED CELL DISTRIBUTION WIDTH 13.5 % (11.6-14.6)
[2022-03-11 06:51] LABS: CHLORIDE 107 mEq/L (98-107)
[2022-03-11 08:00] VITALS: BP 110/71
[2022-03-11] MEDS: DOCUSATE SODIUM SUGAR FREE 100MG/10ML UDC NG SCH ×2 (09:00→20:26)
[2022-03-11] MEDS: ENOXAPARIN 30MG/0.3ML SYR SUBCUT SCH ×2 (09:03→20:27)
[2022-03-11] MEDS: POLYETHYLENE GLYCOL 3350 (17GM) 1 DOSE PACK PO SCH (09:03)
[2022-03-11] MEDS: ACETAMINOPHEN 325MG TABLET PO PRN (09:04)
[2022-03-11] MEDS: CLOPIDOGREL 75MG TABLET PO SCH (09:04)
[2022-03-11] MEDS: THIAMINE HCL 100MG TABLET PO SCH (09:04)
[2022-03-11] MEDS: DOCUSATE SODIUM 100MG CAPSULE PO PRN (09:04)
[2022-03-11] MEDS: FOLIC ACID 1MG TABLET PO SCH (09:04)
[2022-03-11] MEDS: ASPIRIN 81MG TABLET PO SCH (09:04)
[2022-03-11] MEDS: ACETAMINOPHEN 500MG TABLET PO SCH ×3 (09:09→18:06)
[2022-03-11 12:00] VITALS: BP 105/68
[2022-03-11 16:00] VITALS: BP 108/66
[2022-03-11 20:00] VITALS: BP 98/58
[2022-03-11] MEDS: ATORVASTATIN CALCIUM 40MG TABLET PO SCH (20:27)
[2022-03-12] VITALS: BP 129/80
[2022-03-12 04:00] VITALS: BP 105/64
[2022-03-12 08:00] VITALS: BP 93/63
[2022-03-12] MEDS: POLYETHYLENE GLYCOL 3350 (17GM) 1 DOSE PACK PO SCH (09:48)
[2022-03-12] MEDS: THIAMINE HCL 100MG TABLET PO SCH (09:48)
[2022-03-12] MEDS: ASPIRIN 81MG TABLET PO SCH (09:48)
[2022-03-12] MEDS: CLOPIDOGREL 75MG TABLET PO SCH (09:48)
[2022-03-12] MEDS: FOLIC ACID 1MG TABLET PO SCH (09:48)
[2022-03-12] MEDS: ENOXAPARIN 30MG/0.3ML SYR SUBCUT SCH ×2 (09:50→20:47)
[2022-03-12] MEDS: ACETAMINOPHEN 325MG TABLET PO PRN (09:51)
[2022-03-12] MEDS: PANTOPRAZOLE 40MG DR TABLET PO SCH (09:56)
[2022-03-12] MEDS: DOCUSATE SODIUM 100MG CAPSULE PO PRN ×2 (09:56→09:57)
[2022-03-12] MEDS: DOCUSATE SODIUM SUGAR FREE 100MG/10ML UDC NG SCH ×2 (09:59→20:47)
[2022-03-12 12:00] VITALS: BP 98/67
[2022-03-12 16:00] VITALS: BP 81/50
[2022-03-12 20:00] VITALS: BP 105/66
[2022-03-12] MEDS: ATORVASTATIN CALCIUM 40MG TABLET PO SCH (20:47)
[2022-03-13] VITALS: BP 94/60
[2022-03-13 04:00] VITALS: BP 92/50
[2022-03-13 07:57] LABS: BASOPHILS % 0.6 % (0.0-2.0); EOSINOPHILS % 14.2 % (0.0-5.0); HEMOGLOBIN. 14.7 g/dL (14.0-18.0); LYMPHOCYTES % 40.1 % (20.0-50.0); MEAN CORPUSCULAR HEMOGLOBIN 34.3 pg (28.0-32.0); MEAN CORPUSCULAR VOLUME 98.2 fL (80.0-94.0); MEAN PLATELET VOLUME 9.5 fl (7.4-10.4); MONOCYTES % 9.6 % (2.0-8.0); NEUTROPHILS % 35.5 % (40.0-76.0); PLATELET 177 x1000/uL (130-400); RED BLOOD CELL COUNT 4.28 mill/uL (4.7-6.1); RED CELL DISTRIBUTION WIDTH 13.5 % (11.6-14.6)
[2022-03-13 07:59] LABS: CHLORIDE 108 mEq/L (98-107)
[2022-03-13 08:00] VITALS: BP 100/67
[2022-03-13] MEDS: CLOPIDOGREL 75MG TABLET PO SCH (08:35)
[2022-03-13] MEDS: FOLIC ACID 1MG TABLET PO SCH (08:35)
[2022-03-13] MEDS: ASPIRIN 81MG TABLET PO SCH (08:35)
[2022-03-13] MEDS: POLYETHYLENE GLYCOL 3350 (17GM) 1 DOSE PACK PO SCH (08:36)
[2022-03-13] MEDS: PANTOPRAZOLE 40MG DR TABLET PO SCH (08:36)
[2022-03-13] MEDS: THIAMINE HCL 100MG TABLET PO SCH (08:36)
[2022-03-13] MEDS: DOCUSATE SODIUM SUGAR FREE 100MG/10ML UDC NG SCH ×2 (08:36→20:06)
[2022-03-13] MEDS: ENOXAPARIN 30MG/0.3ML SYR SUBCUT SCH ×2 (08:37→20:07)
[2022-03-13 12:00] VITALS: BP 99/60
[2022-03-13 16:00] VITALS: BP 106/60
[2022-03-13] MEDS: ACETAMINOPHEN 500MG TABLET PO SCH ×2 (16:00→21:33)
[2022-03-13 20:00] VITALS: BP 99/66
[2022-03-13] MEDS: ATORVASTATIN CALCIUM 40MG TABLET PO SCH (20:07)
[2022-03-14] VITALS: BP 95/62
[2022-03-14 01:19] LABS: HEMATOCRIT 41.7 % (42.0-52.0); HEMOGLOBIN 14.3 g/dL (14.0-18.0)
[2022-03-14 04:00] VITALS: BP 93/61
[2022-03-14] MEDS: ACETAMINOPHEN 500MG TABLET PO SCH ×3 (05:57→21:02)
[2022-03-14] MEDS: PANTOPRAZOLE 40MG DR TABLET PO SCH (06:31)
[2022-03-14 08:00] VITALS: BP 101/65
[2022-03-14] MEDS: FOLIC ACID 1MG TABLET PO SCH (08:16)
[2022-03-14] MEDS: DOCUSATE SODIUM SUGAR FREE 100MG/10ML UDC NG SCH ×2 (08:16→20:50)
[2022-03-14] MEDS: ASPIRIN 81MG TABLET PO SCH (08:16)
[2022-03-14] MEDS: THIAMINE HCL 100MG TABLET PO SCH (08:16)
[2022-03-14] MEDS: POLYETHYLENE GLYCOL 3350 (17GM) 1 DOSE PACK PO SCH (08:16)
[2022-03-14] MEDS: CLOPIDOGREL 75MG TABLET PO SCH (08:16)
[2022-03-14] MEDS: ENOXAPARIN 30MG/0.3ML SYR SUBCUT SCH ×2 (08:18→20:50)
[2022-03-14 12:00] VITALS: BP 105/62
[2022-03-14 12:01] LABS: BASOPHILS % 0.7 % (0.0-2.0); EOSINOPHILS % 11.2 % (0.0-5.0); HEMATOCRIT. 40.2 % (42.0-52.0); LYMPHOCYTES % 42.5 % (20.0-50.0); MEAN CORPUSCULAR HEMOGLOBIN 34.5 pg (28.0-32.0); MEAN CORPUSCULAR VOLUME 98.7 fL (80.0-94.0); MEAN PLATELET VOLUME 9.5 fl (7.4-10.4); MONOCYTES % 7.8 % (2.0-8.0); NEUTROPHILS % 37.8 % (40.0-76.0); PLATELET 167 x1000/uL (130-400); RED BLOOD CELL COUNT 4.07 mill/uL (4.7-6.1); RED CELL DISTRIBUTION WIDTH 13.2 % (11.6-14.6)
[2022-03-14 12:26] LABS: CHLORIDE 107 mEq/L (98-107)
[2022-03-14 13:12] LABS: HEMATOCRIT 40.9 % (42.0-52.0); HEMOGLOBIN 14.2 g/dL (14.0-18.0)
[2022-03-14 16:00] VITALS: BP 98/58
[2022-03-14 20:00] VITALS: BP 102/60
[2022-03-14] MEDS: METOCLOPRAMIDE 10MG/10 ML UDC PO SCH (20:51)
[2022-03-14] MEDS: ATORVASTATIN CALCIUM 40MG TABLET PO SCH (20:51)
[2022-03-15] VITALS: BP 103/72
[2022-03-15 04:00] VITALS: BP 95/63
[2022-03-15] MEDS: METOCLOPRAMIDE 10MG/10 ML UDC PO SCH ×4 (06:33→21:23)
[2022-03-15] MEDS: PANTOPRAZOLE 40MG DR TABLET PO SCH (06:33)
[2022-03-15] MEDS: ACETAMINOPHEN 500MG TABLET PO SCH ×3 (06:33→21:23)
[2022-03-15 08:00] VITALS: BP 100/64
[2022-03-15] MEDS: CLOPIDOGREL 75MG TABLET PO SCH (09:28)
[2022-03-15] MEDS: THIAMINE HCL 100MG TABLET PO SCH (09:28)
[2022-03-15] MEDS: POLYETHYLENE GLYCOL 3350 (17GM) 1 DOSE PACK PO SCH (09:29)
[2022-03-15] MEDS: DOCUSATE SODIUM SUGAR FREE 100MG/10ML UDC NG SCH ×2 (09:29→21:23)
[2022-03-15] MEDS: ENOXAPARIN 30MG/0.3ML SYR SUBCUT SCH ×2 (09:29→21:24)
[2022-03-15] MEDS: ASPIRIN 81MG TABLET PO SCH (09:29)
[2022-03-15] MEDS: FOLIC ACID 1MG TABLET PO SCH (09:29)
[2022-03-15 09:32] LABS: BASOPHILS % 0.7 % (0.0-2.0); EOSINOPHILS % 10.4 % (0.0-5.0); HEMATOCRIT. 38.9 % (42.0-52.0); HEMOGLOBIN. 13.7 g/dL (14.0-18.0); LYMPHOCYTES % 42.6 % (20.0-50.0); MEAN CORPUSCULAR HEMOGLOBIN 34.5 pg (28.0-32.0); MEAN PLATELET VOLUME 9.6 fl (7.4-10.4); MONOCYTES % 8.1 % (2.0-8.0); NEUTROPHILS % 38.2 % (40.0-76.0); PLATELET 155 x1000/uL (130-400); RED BLOOD CELL COUNT 3.97 mill/uL (4.7-6.1); RED CELL DISTRIBUTION WIDTH 13.3 % (11.6-14.6)
[2022-03-15 10:06] LABS: CHLORIDE 108 mEq/L (98-107)
[2022-03-15 12:00] VITALS: BP 110/66
[2022-03-15 16:00] VITALS: BP 109/65
[2022-03-15 20:00] VITALS: BP 101/65
[2022-03-15] MEDS: ATORVASTATIN CALCIUM 40MG TABLET PO SCH (21:23)
[2022-03-16] VITALS: BP 93/54
[2022-03-16 04:00] VITALS: BP 97/53
[2022-03-16] MEDS: ACETAMINOPHEN 500MG TABLET PO SCH ×3 (05:44→22:17)
[2022-03-16] MEDS: PANTOPRAZOLE 40MG DR TABLET PO SCH (05:44)
[2022-03-16] MEDS: METOCLOPRAMIDE 10MG/10 ML UDC PO SCH ×4 (05:44→22:17)
[2022-03-16 07:36] LABS: BASOPHILS % 0.7 % (0.0-2.0); EOSINOPHILS % 11.1 % (0.0-5.0); HEMOGLOBIN. 13.9 g/dL (14.0-18.0); LYMPHOCYTES % 46.3 % (20.0-50.0); MEAN CORPUSCULAR HEMOGLOBIN 34.4 pg (28.0-32.0); MEAN PLATELET VOLUME 9.5 fl (7.4-10.4); MONOCYTES % 8.7 % (2.0-8.0); NEUTROPHILS % 33.2 % (40.0-76.0); PLATELET 153 x1000/uL (130-400); RED BLOOD CELL COUNT 4.04 mill/uL (4.7-6.1); RED CELL DISTRIBUTION WIDTH 13.6 % (11.6-14.6)
[2022-03-16 08:00] VITALS: BP 105/62
[2022-03-16 08:45] LABS: CHLORIDE 109 mEq/L (98-107)
[2022-03-16] MEDS: DOCUSATE SODIUM SUGAR FREE 100MG/10ML UDC NG SCH ×2 (09:07→22:17)
[2022-03-16] MEDS: ASPIRIN 81MG TABLET PO SCH (09:07)
[2022-03-16] MEDS: CLOPIDOGREL 75MG TABLET PO SCH (09:07)
[2022-03-16] MEDS: ENOXAPARIN 30MG/0.3ML SYR SUBCUT SCH ×2 (09:07→22:19)
[2022-03-16] MEDS: THIAMINE HCL 100MG TABLET PO SCH (09:07)
[2022-03-16] MEDS: FOLIC ACID 1MG TABLET PO SCH (09:07)
[2022-03-16] MEDS: POLYETHYLENE GLYCOL 3350 (17GM) 1 DOSE PACK PO SCH (09:08)
[2022-03-16 12:00] VITALS: BP 111/67
[2022-03-16 16:00] VITALS: BP 109/69
[2022-03-16 19:09] LABS: 25-HYDROXY VITAMIN D3 13 ng/mL (.)
[2022-03-16 20:00] VITALS: BP 104/65
[2022-03-16] MEDS: ATORVASTATIN CALCIUM 40MG TABLET PO SCH (22:17)
[2022-03-17] VITALS: BP 106/56
[2022-03-17 04:00] VITALS: BP 98/63
[2022-03-17] MEDS: PANTOPRAZOLE 40MG DR TABLET PO SCH (06:12)
[2022-03-17] MEDS: METOCLOPRAMIDE 10MG/10 ML UDC PO SCH ×4 (06:12→21:43)
[2022-03-17] MEDS: ACETAMINOPHEN 500MG TABLET PO SCH ×3 (06:12→21:44)
[2022-03-17 08:00] VITALS: BP 104/73
[2022-03-17] MEDS: ASPIRIN 81MG TABLET PO SCH (08:14)
[2022-03-17] MEDS: CLOPIDOGREL 75MG TABLET PO SCH (08:15)
[2022-03-17] MEDS: ENOXAPARIN 30MG/0.3ML SYR SUBCUT SCH ×2 (08:15→21:43)
[2022-03-17] MEDS: FOLIC ACID 1MG TABLET PO SCH (08:15)
[2022-03-17] MEDS: THIAMINE HCL 100MG TABLET PO SCH (08:15)
[2022-03-17] MEDS: POLYETHYLENE GLYCOL 3350 (17GM) 1 DOSE PACK PO SCH (08:16)
[2022-03-17] MEDS: DOCUSATE SODIUM SUGAR FREE 100MG/10ML UDC NG SCH ×2 (09:00→21:44)
[2022-03-17 12:00] VITALS: BP 98/65
[2022-03-17] MEDS ORDERED: ERGOCALCIFEROL 50000UNITS CAPSULE PO SCH (12:30)
[2022-03-17 16:00] VITALS: BP 100/61
[2022-03-17 20:00] VITALS: BP 109/68
[2022-03-17] MEDS: ATORVASTATIN CALCIUM 40MG TABLET PO SCH (21:44)
[2022-03-18] VITALS (7 sets, daily range): BP systolic 85–113; BP diastolic 47–74
[2022-03-18] MEDS: ACETAMINOPHEN 500MG TABLET PO SCH ×3 (06:03→20:47)
[2022-03-18] MEDS: PANTOPRAZOLE 40MG DR TABLET PO SCH (06:03)
[2022-03-18] MEDS: METOCLOPRAMIDE 10MG/10 ML UDC PO SCH ×4 (06:03→20:44)
[2022-03-18] MEDS: POLYETHYLENE GLYCOL 3350 (17GM) 1 DOSE PACK PO SCH (08:36)
[2022-03-18] MEDS: ENOXAPARIN 30MG/0.3ML SYR SUBCUT SCH ×2 (08:37→20:45)
[2022-03-18] MEDS: THIAMINE HCL 100MG TABLET PO SCH (08:37)
[2022-03-18] MEDS: FOLIC ACID 1MG TABLET PO SCH (08:37)
[2022-03-18] MEDS: ASPIRIN 81MG TABLET PO SCH (08:37)
[2022-03-18] MEDS: DOCUSATE SODIUM SUGAR FREE 100MG/10ML UDC NG SCH ×2 (08:38→20:44)
[2022-03-18] MEDS: CLOPIDOGREL 75MG TABLET PO SCH (08:38)
[2022-03-18 10:22] LABS: BASOPHILS % 0.7 % (0.0-2.0); EOSINOPHILS % 9.5 % (0.0-5.0); HEMATOCRIT. 40.9 % (42.0-52.0); HEMOGLOBIN. 14.1 g/dL (14.0-18.0); LYMPHOCYTES % 41.5 % (20.0-50.0); MEAN CORPUSCULAR VOLUME 98.4 fL (80.0-94.0); MEAN PLATELET VOLUME 9.4 fl (7.4-10.4); MONOCYTES % 7.9 % (2.0-8.0); NEUTROPHILS % 40.4 % (40.0-76.0); PLATELET 152 x1000/uL (130-400); RED BLOOD CELL COUNT 4.16 mill/uL (4.7-6.1); RED CELL DISTRIBUTION WIDTH 13.5 % (11.6-14.6)
[2022-03-18 10:39] LABS: CHLORIDE 107 mEq/L (98-107)
[2022-03-18] MEDS ORDERED: FOLIC ACID 1MG TABLET PO SCH (14:00)
[2022-03-18] MEDS ORDERED: ASPIRIN 81MG TABLET PO SCH (14:00)
[2022-03-18] MEDS ORDERED: THIAMINE HCL 100MG TABLET PO SCH (14:00)
[2022-03-18] MEDS: ATORVASTATIN CALCIUM 40MG TABLET PO SCH (20:46)
[2022-03-19] VITALS: BP 98/60
[2022-03-19 04:00] VITALS: BP 105/70
[2022-03-19] MEDS: ACETAMINOPHEN 500MG TABLET PO SCH ×3 (06:11→21:58)
[2022-03-19] MEDS: PANTOPRAZOLE 40MG DR TABLET PO SCH (06:12)
[2022-03-19] MEDS: METOCLOPRAMIDE 10MG/10 ML UDC PO SCH ×4 (06:13→21:58)
[2022-03-19 08:00] VITALS: BP 121/76
[2022-03-19] MEDS: ENOXAPARIN 30MG/0.3ML SYR SUBCUT SCH ×2 (10:06→21:58)
[2022-03-19] MEDS: THIAMINE HCL 100MG TABLET PO SCH (10:07)
[2022-03-19] MEDS: FOLIC ACID 1MG TABLET PO SCH (10:07)
[2022-03-19] MEDS: DOCUSATE SODIUM SUGAR FREE 100MG/10ML UDC NG SCH ×2 (10:07→21:58)
[2022-03-19] MEDS: ASPIRIN 81MG TABLET PO SCH (10:07)
[2022-03-19] MEDS: POLYETHYLENE GLYCOL 3350 (17GM) 1 DOSE PACK PO SCH (10:07)
[2022-03-19 12:00] VITALS: BP 111/66
[2022-03-19] MEDS ORDERED: THIA100T72 PO (15:40)
[2022-03-19] MEDS ORDERED: POLY17PO3 PO (15:40)
[2022-03-19] MEDS ORDERED: PANT40TA51 PO (15:40)
[2022-03-19] MEDS ORDERED: LIP40 PO (15:40)
[2022-03-19] MEDS ORDERED: FOLI-43 PO (15:40)
[2022-03-19] MEDS ORDERED: ASPI-1406 MT (15:40)
[2022-03-19 20:00] VITALS: BP 98/63
[2022-03-19] MEDS: ATORVASTATIN CALCIUM 40MG TABLET PO SCH (21:58)
[2022-03-20] VITALS: BP 98/63
[2022-03-20 04:00] VITALS: BP 98/58
[2022-03-20 05:35] LABS: BASOPHILS % 0.7 % (0.0-2.0); EOSINOPHILS % 8.7 % (0.0-5.0); LYMPHOCYTES % 41.9 % (20.0-50.0); MEAN CORPUSCULAR HEMOGLOBIN 34.4 pg (28.0-32.0); MEAN CORPUSCULAR VOLUME 98.5 fL (80.0-94.0); MEAN PLATELET VOLUME 9.1 fl (7.4-10.4); MONOCYTES % 9.7 % (2.0-8.0); PLATELET 141 x1000/uL (130-400); RED BLOOD CELL COUNT 4.07 mill/uL (4.7-6.1); RED CELL DISTRIBUTION WIDTH 13.6 % (11.6-14.6)
[2022-03-20 05:42] LABS: CHLORIDE 108 mEq/L (98-107)
[2022-03-20] MEDS: PANTOPRAZOLE 40MG DR TABLET PO SCH (06:40)
[2022-03-20] MEDS: METOCLOPRAMIDE 10MG/10 ML UDC PO SCH ×2 (06:40→10:23)
[2022-03-20] MEDS: ACETAMINOPHEN 500MG TABLET PO SCH ×2 (06:40→13:40)
[2022-03-20 08:00] VITALS: BP 100/64
[2022-03-20] MEDS: DOCUSATE SODIUM SUGAR FREE 100MG/10ML UDC NG SCH (10:23)
[2022-03-20] MEDS: FOLIC ACID 1MG TABLET PO SCH (10:23)
[2022-03-20] MEDS: ENOXAPARIN 30MG/0.3ML SYR SUBCUT SCH (10:24)
[2022-03-20] MEDS: POLYETHYLENE GLYCOL 3350 (17GM) 1 DOSE PACK PO SCH (10:24)
[2022-03-20] MEDS: THIAMINE HCL 100MG TABLET PO SCH (10:24)
[2022-03-20] MEDS: ASPIRIN 81MG TABLET PO SCH (10:36)
[2022-03-20 12:00] VITALS: BP 104/64
== END 2022-03-20 17:25 | DRG 45 ==
LOC: ER 20:15 → 3WST 02-17 00:35 → UNDOADMIN 02-17 00:35 → 5EST 02-17 00:35 → EDBEDREQTM 02-17 00:46 → EDBEDREQ 02-17 00:46 → EDBEDREQTM 02-17 02:20 → EDBEDREQ 02-17 02:20 → EDBEDREQSVC 02-17 02:20 → EDBEDREQDT 02-17 02:20 → 6EST 03-06 10:41
PROVIDERS: ADMIT Internal Medicine; ATTEND Internal Medicine
PROC: 0DH63UZ Insertion of Feeding Device into Stomach, Percutaneous Approach (ICD-10-PCS; principal; 2022-03-05)
PROC: 0DB78ZX Excision of Stomach, Pylorus, Via Natural or Artificial Opening Endoscopic, Diagnostic (ICD-10-PCS; 2022-03-05)
DX: I63.9 Cerebral infarction, unspecified (principal); I77.74 Dissection of vertebral artery; G93.41 Metabolic encephalopathy; G81.91 Hemiplegia, unspecified affecting right dominant side; I50.9 Heart failure, unspecified; I11.0 Hypertensive heart disease with heart failure; K74.60 Unspecified cirrhosis of liver; R47.01 Aphasia; K76.0 Fatty (change of) liver, not elsewhere classified; E78.00 Pure hypercholesterolemia, unspecified; E87.6 Hypokalemia; F12.90 Cannabis use, unspecified, uncomplicated; H55.00 Unspecified nystagmus; F10.20 Alcohol dependence, uncomplicated; F17.210 Nicotine dependence, cigarettes, uncomplicated; R13.12 Dysphagia, oropharyngeal phase; D53.9 Nutritional anemia, unspecified; R47.1 Dysarthria and anarthria; E78.5 Hyperlipidemia, unspecified; E55.9 Vitamin D deficiency, unspecified; I25.10 Atherosclerotic heart disease of native coronary artery without angina pectoris; K29.30 Chronic superficial gastritis without bleeding; I65.01 Occlusion and stenosis of right vertebral artery; R51.9 Headache, unspecified; R06.6 Hiccough; Z20.822 Contact with and (suspected) exposure to COVID-19
CPT/HCPCS: 36415; 70496; 70498; 70544; 70551; 71045; 74230; 76700; 80048; 80053; 80061; 80076; 80320; 82248; 82306; 82607; 82728; 82746; 83036; 83540; 83550; 83880; 84443; 84484; 85014; 85018; 85025; 85027; 86850; 86900; 87426; 88305; 88312; 88313; 92610; 92611; 93005; 93306; 97110; 97112; 97116; 97162; 97166; 97530; 97535; 99291; J0690; J1650; J2250; J2270; J2405; J2704; J2765; J3490; J7030; J8597; Q0161; U0003; U0005; G0480